=== PATIENT | female | born 1950 | race Caucasian/White ===

== ENCOUNTER 2019-03-03 13:47 | Inpatient (IN) | payer MEDICARE ==
[~2019-03-03] VITALS: Ht 154.9 cm; Wt 71.4 kg
[2019-03-03] MEDS ORDERED: SODIUM CHLORIDE FLUSH 10ML SYR IVF ONE (14:30)
--- NOTE | 2019-03-03 14:39 | NUR ---
Pt to room from lobby.
[2019-03-03 14:46] LABS: BASOPHILS # (AUTO) 0.06 x10^3/uL (0-0.1); BASOPHILS % (AUTO) 1 % (0-1); EOSINOPHILS # (AUTO) 0.11 x10^3/uL (0-0.4); EOSINOPHILS % (AUTO) 1 % (1-7); LYMPHOCYTES # (AUTO) 1.47 x10^3/uL (1-3.4); LYMPHOCYTES % (AUTO) 14 % (22-44); MD NO; MEAN CORPUSCULAR HGB CONC 32.5 g/dL (32.4-35.8); MEAN CORPUSCULAR VOLUME 89.2 fL (80-100); MONOCYTES # (AUTO) 0.79 x10^3/uL (0.2-0.8); MONOCYTES % (AUTO) 7 % (2-9); NEUTROPHILS # (AUTO) 8.24 x10^3/uL (1.8-6.8); NEUTROPHILS % (AUTO) 77 % (42-75); PLATELET COUNT 339 x10^3/uL (130-400); RED BLOOD COUNT 4.84 x10^6/uL (3.82-5.3); RED CELL DISTRIBUTION WIDTH 15.6 % (9.6-15.2)
[2019-03-03 14:51] LABS: ALBUMIN 2.9 g/dL (3.4-5.0); ANION GAP 7 mmol/L (5-15); CALCIUM 10.1 mg/dL (8.5-10.1); CHLORIDE 102 mmol/L (98-107); CREATININE 0.81 mg/dL (0.55-1.02)
--- NOTE | 2019-03-03 14:54 | NUR ---
FIRST CONTACT WITH PT. PT STATES "I TOOK A REAL BAD FALL SUNDAY NIGHT AROUND 10PM, FELL BACKWARDS, I HIT SOMETHING WITH MY SPINE, PAIN AROUND WAIST AREA, MY WHOLE STOMACH HURTS AND MY RIBS, HIT MY HEAD UNSURE IF I KNOCKED MYSELF OUT." DENIES ANY NECK PAIN, CP, SOB, N/V/D, DIZZINESS, URINARY OR STOOL INCONTINENCE. PT'S AOX4. RESPS EVEN AND UNLABORED. BP/SPO2 MONITORS IN PLACE. CALL LIGHT WITHIN REACH.
[2019-03-03] MEDS ORDERED: TIZANIDINE 4MG TABLET PO ONE (15:30)
[2019-03-03] MEDS ORDERED: OXYcodone/APAP 5/325MG TABLET PO ONE (15:30)
[2019-03-03] MEDS ORDERED: OXYcodone/APAP 5/325MG TABLET ONE (15:35)
--- NOTE | 2019-03-03 15:40 | NUR ---
pt medicated per emar. pt tolerated well.
--- NOTE | 2019-03-03 15:44 | NUR ---
PTIS NOT ABLE TO PROVIDE URINE SAMPLE AT THIS TIME.
--- NOTE | 2019-03-03 16:12 | NUR ---
PT IS IN CT NOW.
--- NOTE | 2019-03-03 16:31 | NUR ---
PT BACK TO ROOM FROM CT NOW.
[2019-03-03] MEDS ORDERED: OMNIPAQUE 350 MG/ML, 100ML BOTTLE ONE (16:34)
--- NOTE | 2019-03-03 16:47 | NUR ---
PT WHEELED TO AND BACK TO ROOM. PT PROVIDED URINE SAMPLE AT THIS TIME.
[2019-03-03 17:09] LABS: CULTURE INDICATED? NO; MICROSCOPIC NOT IND
--- NOTE | 2019-03-03 17:10 | NUR ---
ns infusing at this time. pt tolerated well.
[2019-03-03] MEDS ORDERED: TRAM50TA2 PO (17:11)
[2019-03-03] MEDS ORDERED: TIZA4TAB2 PO (17:13)
[2019-03-03] MEDS ORDERED: ETOD400T PO (17:14)
[2019-03-03] MEDS ORDERED: THYR15TA PO (17:15)
--- NOTE | 2019-03-03 17:51 | NUR ---
JAVAD WATER PROVIDED AT THIS TIME.
[2019-03-03] MEDS ORDERED: SODIUM CHLORIDE 0.9% 1,000 ML IV ONE (18:00)
--- NOTE | 2019-03-03 18:19 | NUR ---
REPORT GIVEN TO DC BLACKMON. ALL QUESTIONS ANSWERED.
[2019-03-03] MEDS ORDERED: hydrALAzine 20 MG/ML, 1ML IVPush PRN (19:00)
[2019-03-03] MEDS ORDERED: DOCUSATE 100 MG CAPSULE PO PRN (19:00)
[2019-03-03] MEDS ORDERED: ONDANSETRON ODT 4 MG PO PRN (19:00)
[2019-03-03] MEDS ORDERED: POLYETHYLENE GLYCOL 17 GM PACKET PO PRN (19:00)
[2019-03-03] MEDS ORDERED: ONDANSETRON 2MG/ML, 2ML IVPush PRN (19:00)
[2019-03-03] MEDS ORDERED: ACETAMINOPHEN 325 MG TABLET PO PRN (19:00)
[2019-03-03] MEDS ORDERED: BISACODYL 10 MG SUPP PR PRN (19:00)
[2019-03-03] MEDS ORDERED: PROMETHAZINE 25 MG/ML, 1ML IM PRN (19:00)
[2019-03-03 19:33] VITALS: BP 123/74
[2019-03-03 19:36] LABS: FREE T4 (FREE THYROXINE) 1.22 ng/dL (0.76-1.46)
[2019-03-03 19:50] LABS: HEMOGLOBIN A1C 5.6 % (4.2-6.3)
[2019-03-03] MEDS: SENNA/DOCUSATE TABLET PO SCH (20:20)
[2019-03-03] MEDS: morphine SULFATE 10 MG/ML, 1ML IVPush PRN ×2 (20:21→23:40)
[2019-03-03] MEDS: SODIUM CHLORIDE 0.9% 1,000 ML IV SCH (20:21)
[2019-03-03 23:05] VITALS: BP 131/73
[2019-03-04] MEDS: SODIUM CHLORIDE 0.9% 1,000 ML IV SCH ×2 (02:24→10:31)
[2019-03-04 02:28] VITALS: BP 136/78
[2019-03-04] MEDS: morphine SULFATE 10 MG/ML, 1ML IVPush PRN ×4 (02:42→18:12)
[2019-03-04 04:41] LABS: BASOPHILS # (AUTO) 0.02 x10^3/uL (0-0.1); BASOPHILS % (AUTO) 0 % (0-1); EOSINOPHILS # (AUTO) 0.09 x10^3/uL (0-0.4); EOSINOPHILS % (AUTO) 1 % (1-7); LYMPHOCYTES # (AUTO) 1.23 x10^3/uL (1-3.4); LYMPHOCYTES % (AUTO) 14 % (22-44); MD NO; MEAN CORPUSCULAR HEMOGLOBIN 28.3 pg (27.0-34.8); MEAN CORPUSCULAR HGB CONC 31.8 g/dL (32.4-35.8); MEAN PLATELET VOLUME 7.7 fL (7.4-10.4); MONOCYTES # (AUTO) 0.87 x10^3/uL (0.2-0.8); MONOCYTES % (AUTO) 10 % (2-9); NEUTROPHILS # (AUTO) 6.88 x10^3/uL (1.8-6.8); NEUTROPHILS % (AUTO) 76 % (42-75); PLATELET COUNT 294 x10^3/uL (130-400); RED BLOOD COUNT 4.51 x10^6/uL (3.82-5.3); RED CELL DISTRIBUTION WIDTH 15.4 % (9.6-15.2)
[2019-03-04 04:54] LABS: ALBUMIN 2.5 g/dL (3.4-5.0); ANION GAP 5 mmol/L (5-15); CALCIUM 9.1 mg/dL (8.5-10.1); CHLORIDE 106 mmol/L (98-107)
[2019-03-04 04:59] LABS: ALANINE AMINOTRANSFERASE 23 U/L (12-78); ALKALINE PHOSPHATASE 103 U/L (45-117); BILIRUBIN,TOTAL 0.5 mg/dL (0.2-1.0); CHOL/HDL RATIO 2.8; CHOLESTEROL, TOTAL 131 mg/dL (140-239); CREATININE 0.79 mg/dL (0.55-1.02); HDL CHOL % 36 % (28-40); HDL CHOLESTEROL (DIRECT) 47 mg/dL (40-60); LDL CHOLESTEROL,CALCULATED 70 mg/dL (54-169); LDL/HDL RATIO 1.5 (0.5-3.0); TOTAL PROTEIN 7.3 g/dL (6.4-8.2); TRIGLYCERIDES 68 mg/dL (50-200); VLDL CHOLESTEROL 14 mg/dL (0-25)
[2019-03-04] MEDS: THYROID PORK 15 MG PO SCH (06:00)
[2019-03-04] MEDS: OXYcodone IR 5MG TABLET PO PRN ×2 (06:22→23:23)
[2019-03-04 07:41] VITALS: BP 120/86
[2019-03-04] MEDS: SENNA/DOCUSATE TABLET PO SCH ×2 (09:17→20:30)
[2019-03-04] MEDS ORDERED: FENTANYL PF 100 MCG/2ML ONE ×2 (10:07→11:29)
[2019-03-04] MEDS ORDERED: FLUMAZENIL 0.1 MG/1 ML, 5ML ONE ×2 (10:07→11:29)
[2019-03-04] MEDS ORDERED: MIDAZOLAM 1 MG/ML, 5ML ONE ×2 (10:07→11:29)
[2019-03-04] MEDS ORDERED: NALOXONE 1 MG/ML, 2ML ONE ×2 (10:08→11:29)
[2019-03-04] MEDS ORDERED: GADOTERATE 7.5 MMOL/15 ML SYR ONE (13:00)
[2019-03-04 13:30] VITALS: BP 135/73
[2019-03-04 18:47] VITALS: BP 128/68
[2019-03-04] MEDS: HEPARIN 5,000 UNITS/ML, 1ML SQ SCH (20:30)
[2019-03-05 00:16] VITALS: BP 133/73
[2019-03-05] MEDS: OXYcodone IR 5MG TABLET PO PRN ×4 (03:55→22:07)
[2019-03-05] MEDS: HEPARIN 5,000 UNITS/ML, 1ML SQ SCH ×3 (03:55→22:07)
[2019-03-05] MEDS: THYROID PORK 15 MG PO SCH (05:25)
[2019-03-05 06:51] VITALS: BP 126/66
[2019-03-05] MEDS: SENNA/DOCUSATE TABLET PO SCH ×2 (09:27→22:07)
[2019-03-05 12:57] VITALS: BP 135/77
[2019-03-05] MEDS: morphine SULFATE 10 MG/ML, 1ML IVPush PRN (15:29)
[2019-03-05 18:35] VITALS: BP 144/81
[2019-03-06] MEDS: morphine SULFATE 10 MG/ML, 1ML IVPush PRN ×3 (01:12→09:25)
[2019-03-06] MEDS: HEPARIN 5,000 UNITS/ML, 1ML SQ SCH ×3 (04:19→19:58)
[2019-03-06 04:21] VITALS: BP 119/71
[2019-03-06] MEDS: THYROID PORK 15 MG PO SCH (05:15)
[2019-03-06 07:45] VITALS: BP 116/74
[2019-03-06] MEDS: SENNA/DOCUSATE TABLET PO SCH ×2 (08:18→21:08)
[2019-03-06] MEDS: OXYcodone IR 5MG TABLET PO PRN ×3 (13:20→22:37)
[2019-03-06] MEDS ORDERED: GADOTERATE 7.5 MMOL/15 ML SYR ONE (14:20)
[2019-03-06 15:30] VITALS: BP 122/82
[2019-03-06 21:03] VITALS: BP 132/78
[2019-03-07] MEDS: HEPARIN 5,000 UNITS/ML, 1ML SQ SCH ×3 (03:11→19:59)
[2019-03-07] MEDS: OXYcodone IR 5MG TABLET PO PRN ×5 (03:53→23:16)
[2019-03-07 04:17] VITALS: BP 116/76
[2019-03-07] MEDS: THYROID PORK 15 MG PO SCH (04:57)
[2019-03-07] MEDS: SENNA/DOCUSATE TABLET PO SCH ×2 (07:55→19:14)
[2019-03-07 08:25] VITALS: BP 132/75
[2019-03-07 08:40] VITALS: BP 122/82
[2019-03-07] MEDS ORDERED: FENTANYL PF 250 MCG/5ML ONE (11:16)
[2019-03-07] MEDS ORDERED: DEXAMETHASONE 4 MG/ML, 1ML ONE (11:53)
[2019-03-07] MEDS ORDERED: GLYCOPYRROLATE 0.2MG/1ML, 5ML ONE (11:53)
[2019-03-07] MEDS ORDERED: PROPOFOL 10 MG/ML, 20ML ONE (11:53)
[2019-03-07] MEDS ORDERED: CEFAZOLIN 1,000 MG ONE (11:53)
[2019-03-07] MEDS ORDERED: ROCURONIUM 10MG/ML,5ML ONE (11:53)
[2019-03-07] MEDS ORDERED: ONDANSETRON 2MG/ML, 2ML ONE ×2 (11:53→14:04)
[2019-03-07] MEDS ORDERED: NEOSTIGMINE 1 MG/ML, 10ML ONE (11:53)
[2019-03-07] MEDS ORDERED: LIDOCAINE 1%, 20ML ONE (12:17)
[2019-03-07] MEDS ORDERED: ACETAMINOPHEN 325 MG TABLET PO PRN (12:30)
[2019-03-07] MEDS ORDERED: HYDROmorphone 2 MG/ML, 1ML IVPush PRN (12:30)
[2019-03-07] MEDS ORDERED: OXYcodone 5 MG/5 ML ORAL.SOL UDC PO PRN (12:30)
[2019-03-07] MEDS ORDERED: ONDANSETRON 2MG/ML, 2ML IV PRN (12:30)
[2019-03-07] MEDS ORDERED: LABETALOL 5MG/ML, 20ML IV PRN (12:30)
[2019-03-07] MEDS ORDERED: hydrALAzine 20 MG/ML, 1ML IV PRN (12:30)
[2019-03-07] MEDS ORDERED: PROMETHAZINE 25 MG/ML, 1ML IV PRN (12:30)
[2019-03-07] MEDS ORDERED: OXYcodone 5 MG/5 ML ORAL.SOL UDC ONE (13:43)
[2019-03-07] MEDS ORDERED: FENTANYL PF 100 MCG/2ML ONE ×2 (13:43→13:57)
[2019-03-07] MEDS: FENTANYL PF 100 MCG/2ML IV PRN ×4 (13:50→14:09)
[2019-03-07 14:54] VITALS: BP 125/72
[2019-03-07] MEDS ORDERED: MAGNESIUM CITRATE 300ML ORAL SOL PO ONE (15:30)
[2019-03-07 19:06] VITALS: BP 117/68
[2019-03-08] MEDS: HEPARIN 5,000 UNITS/ML, 1ML SQ SCH ×3 (01:36→20:34)
[2019-03-08] MEDS: OXYcodone IR 5MG TABLET PO PRN ×4 (03:45→20:38)
[2019-03-08 03:51] VITALS: BP 108/68
[2019-03-08] MEDS: THYROID PORK 15 MG PO SCH (05:13)
[2019-03-08 07:08] VITALS: BP 117/66
[2019-03-08] MEDS: SENNA/DOCUSATE TABLET PO SCH ×2 (08:41→20:34)
[2019-03-08 16:03] VITALS: BP 100/63
[2019-03-08 19:01] VITALS: BP 118/71
[2019-03-09 02:06] VITALS: BP 118/69
[2019-03-09] MEDS: OXYcodone IR 5MG TABLET PO PRN ×2 (02:11→21:41)
[2019-03-09 05:15] LABS: BASOPHILS # (AUTO) 0.04 x10^3/uL (0-0.1); BASOPHILS % (AUTO) 1 % (0-1); EOSINOPHILS # (AUTO) 0.19 x10^3/uL (0-0.4); EOSINOPHILS % (AUTO) 3 % (1-7); LYMPHOCYTES % (AUTO) 19 % (22-44); MD NO; MEAN CORPUSCULAR HGB CONC 32.1 g/dL (32.4-35.8); MEAN CORPUSCULAR VOLUME 90.3 fL (80-100); MEAN PLATELET VOLUME 8.1 fL (7.4-10.4); MONOCYTES # (AUTO) 0.63 x10^3/uL (0.2-0.8); MONOCYTES % (AUTO) 9 % (2-9); NEUTROPHILS # (AUTO) 4.73 x10^3/uL (1.8-6.8); NEUTROPHILS % (AUTO) 69 % (42-75); PLATELET COUNT 265 x10^3/uL (130-400); RED CELL DISTRIBUTION WIDTH 15.6 % (9.6-15.2)
[2019-03-09 05:23] LABS: ANION GAP 6 mmol/L (5-15); CALCIUM 9.3 mg/dL (8.5-10.1); CHLORIDE 106 mmol/L (98-107)
[2019-03-09] MEDS: THYROID PORK 15 MG PO SCH (06:00)
[2019-03-09] MEDS: HEPARIN 5,000 UNITS/ML, 1ML SQ SCH ×3 (06:15→21:42)
[2019-03-09 06:40] VITALS: BP 124/79
[2019-03-09] MEDS: SENNA/DOCUSATE TABLET PO SCH ×2 (11:39→21:42)
[2019-03-09 12:15] VITALS: BP 111/67
[2019-03-09] MEDS: DIAZEPAM 5 MG TABLET PO PRN (13:45)
[2019-03-09 19:15] VITALS: BP 133/62
[2019-03-09] MEDS: morphine SULFATE 10 MG/ML, 1ML IVPush PRN (20:11)
[2019-03-09] MEDS: CYCLOBENZAPRINE 10 MG TABLET PO PRN (21:50)
[2019-03-10 02:12] VITALS: BP 115/77
[2019-03-10] MEDS: OXYcodone IR 5MG TABLET PO PRN ×4 (04:28→19:54)
[2019-03-10] MEDS: THYROID PORK 15 MG PO SCH (04:37)
[2019-03-10 07:56] VITALS: BP 106/64
[2019-03-10] MEDS: SENNA/DOCUSATE TABLET PO SCH ×2 (09:07→19:55)
[2019-03-10] MEDS: HEPARIN 5,000 UNITS/ML, 1ML SQ SCH ×2 (09:07→17:47)
[2019-03-10 12:34] VITALS: BP 113/76
[2019-03-10] MEDS: CYCLOBENZAPRINE 10 MG TABLET PO PRN (14:41)
[2019-03-10 18:35] VITALS: BP 122/71
[2019-03-11] MEDS: OXYcodone IR 5MG TABLET PO PRN ×5 (01:04→23:18)
[2019-03-11] MEDS: HEPARIN 5,000 UNITS/ML, 1ML SQ SCH ×3 (01:05→17:08)
[2019-03-11 02:16] VITALS: BP 121/81
[2019-03-11 07:07] VITALS: BP 116/78
[2019-03-11] MEDS: THYROID PORK 15 MG PO SCH (08:00)
[2019-03-11] MEDS: DIAZEPAM 5 MG TABLET PO PRN ×2 (08:48→17:07)
[2019-03-11] MEDS: SENNA/DOCUSATE TABLET PO SCH ×2 (08:49→21:17)
[2019-03-11 12:38] VITALS: BP 109/67
[2019-03-11 18:31] VITALS: BP 113/65
[2019-03-12] MEDS: HEPARIN 5,000 UNITS/ML, 1ML SQ SCH ×4 (01:00→23:48)
[2019-03-12 01:02] VITALS: BP 107/65
[2019-03-12] MEDS: OXYcodone IR 5MG TABLET PO PRN (05:23)
[2019-03-12] MEDS: THYROID PORK 15 MG PO SCH (05:23)
[2019-03-12 06:46] VITALS: BP 115/67
[2019-03-12] MEDS: SENNA/DOCUSATE TABLET PO SCH ×2 (08:04→19:56)
[2019-03-12] MEDS: DIAZEPAM 5 MG TABLET PO PRN (08:04)
[2019-03-12 12:23] VITALS: BP 115/73
[2019-03-12 18:59] VITALS: BP 116/72
[2019-03-13 00:24] VITALS: BP 135/77
[2019-03-13] MEDS: THYROID PORK 15 MG PO SCH (05:53)
[2019-03-13 06:45] VITALS: BP 114/72
[2019-03-13] MEDS: SENNA/DOCUSATE TABLET PO SCH ×2 (09:25→19:44)
[2019-03-13] MEDS: DIAZEPAM 5 MG TABLET PO PRN (09:25)
[2019-03-13] MEDS: HEPARIN 5,000 UNITS/ML, 1ML SQ SCH ×2 (09:26→18:44)
[2019-03-13] MEDS ORDERED: SENN-193 PO (10:37)
[2019-03-13] MEDS ORDERED: DIAZ5TAB4 PO (10:37)
[2019-03-13] MEDS ORDERED: ACID1TAB7 PO (10:37)
[2019-03-13] MEDS ORDERED: TRAM50TA2 PO (10:37)
[2019-03-13 12:24] VITALS: BP 114/76
[2019-03-13] MEDS: LACTOBACILLUS CHEW TABLET PO SCH (18:43)
[2019-03-13 18:59] VITALS: BP 129/76
[2019-03-13] MEDS: TIZANIDINE 4MG TABLET PO PRN (19:48)
[2019-03-14 00:10] VITALS: BP 99/66
[2019-03-14] MEDS: HEPARIN 5,000 UNITS/ML, 1ML SQ SCH ×3 (04:03→21:40)
[2019-03-14] MEDS: LACTOBACILLUS CHEW TABLET PO SCH ×4 (04:03→21:40)
[2019-03-14] MEDS: TIZANIDINE 4MG TABLET PO PRN ×3 (04:04→21:40)
[2019-03-14] MEDS: THYROID 30 MG TABLET PO SCH (06:07)
[2019-03-14 06:51] VITALS: BP 103/67
[2019-03-14] MEDS: SENNA/DOCUSATE TABLET PO SCH ×2 (08:37→21:40)
[2019-03-14] MEDS: DIAZEPAM 5 MG TABLET PO PRN ×2 (08:37→18:01)
[2019-03-14] MEDS ORDERED: SENN-177 PO (12:02)
[2019-03-14 13:15] VITALS: BP 124/69
[2019-03-14 19:37] VITALS: BP 115/74
[2019-03-15 04:06] VITALS: BP 112/73
[2019-03-15] MEDS: THYROID 30 MG TABLET PO SCH (04:09)
[2019-03-15] MEDS: HEPARIN 5,000 UNITS/ML, 1ML SQ SCH ×3 (04:10→21:06)
[2019-03-15] MEDS: LACTOBACILLUS CHEW TABLET PO SCH ×3 (07:29→21:06)
[2019-03-15] MEDS: SENNA/DOCUSATE TABLET PO SCH ×2 (07:29→21:06)
[2019-03-15] MEDS: TIZANIDINE 4MG TABLET PO PRN ×2 (07:29→15:56)
[2019-03-15 08:32] VITALS: BP 111/71
[2019-03-15 13:43] VITALS: BP 106/69
[2019-03-15 21:11] VITALS: BP 114/71
[2019-03-16] MEDS: TIZANIDINE 4MG TABLET PO PRN (01:12)
[2019-03-16 01:28] VITALS: BP 112/72
[2019-03-16] MEDS: HEPARIN 5,000 UNITS/ML, 1ML SQ SCH ×3 (04:01→20:10)
[2019-03-16] MEDS: THYROID 30 MG TABLET PO SCH (05:28)
[2019-03-16 07:15] VITALS: BP 92/56
[2019-03-16] MEDS: LACTOBACILLUS CHEW TABLET PO SCH ×3 (08:44→20:10)
[2019-03-16] MEDS: SENNA/DOCUSATE TABLET PO SCH ×2 (08:44→20:10)
[2019-03-16 13:09] VITALS: BP 107/66
[2019-03-16] MEDS: DIAZEPAM 5 MG TABLET PO PRN (14:24)
[2019-03-16 18:38] VITALS: BP 124/71
[2019-03-17 01:18] VITALS: BP 122/69
[2019-03-17] MEDS: HEPARIN 5,000 UNITS/ML, 1ML SQ SCH ×3 (05:24→21:55)
[2019-03-17] MEDS: THYROID 30 MG TABLET PO SCH (05:24)
[2019-03-17 06:51] VITALS: BP 106/61
[2019-03-17] MEDS: SENNA/DOCUSATE TABLET PO SCH ×2 (10:26→21:55)
[2019-03-17] MEDS: LACTOBACILLUS CHEW TABLET PO SCH ×3 (10:26→21:55)
[2019-03-17] MEDS: TIZANIDINE 4MG TABLET PO PRN (12:47)
[2019-03-17 13:25] VITALS: BP 105/54
[2019-03-17 18:27] VITALS: BP 104/69
[2019-03-17 23:38] VITALS: BP 108/76
[2019-03-18] MEDS: TIZANIDINE 4MG TABLET PO PRN ×2 (00:13→11:05)
[2019-03-18] MEDS: HEPARIN 5,000 UNITS/ML, 1ML SQ SCH (05:42)
[2019-03-18] MEDS: THYROID 30 MG TABLET PO SCH (05:42)
[2019-03-18 06:52] VITALS: BP 117/73
[2019-03-18] MEDS: SENNA/DOCUSATE TABLET PO SCH (09:16)
[2019-03-18] MEDS: LACTOBACILLUS CHEW TABLET PO SCH (09:16)
[2019-03-18 11:00] VITALS: BP 116/64
== END 2019-03-18 11:35 | disposition home health service (06) | DRG 166 ==
LOC: ED 16:56 → EDIP 16:57 → ED 17:12 → 4NW 18:01 → DCLOUNGE 03-18 11:09
PROVIDERS: ADMIT Internal Medicine; ATTEND Internal Medicine
PROC: 0WBC3ZX Excision of Mediastinum, Percutaneous Approach, Diagnostic (ICD-10-PCS; principal; 2019-03-04)
PROC: 0PB43ZX Excision of Thoracic Vertebra, Percutaneous Approach, Diagnostic (ICD-10-PCS; 2019-03-07)
PROC: 0PS43ZZ Reposition Thoracic Vertebra, Percutaneous Approach (ICD-10-PCS; 2019-03-07)
PROC: 0PU43JZ Supplement Thoracic Vertebra with Synthetic Substitute, Percutaneous Approach (ICD-10-PCS; 2019-03-07)
PROC: 0P543ZZ Destruction of Thoracic Vertebra, Percutaneous Approach (ICD-10-PCS; 2019-03-07)
DX: C34.91 Malignant neoplasm of unspecified part of right bronchus or lung (principal); E43 Unspecified severe protein-calorie malnutrition; M80.08XA Age-related osteoporosis with current pathological fracture, vertebra(e), initial encounter for fracture; N13.30 Unspecified hydronephrosis; N26.1 Atrophy of kidney (terminal); E03.9 Hypothyroidism, unspecified; G89.29 Other chronic pain; J44.9 Chronic obstructive pulmonary disease, unspecified; K59.00 Constipation, unspecified; M19.90 Unspecified osteoarthritis, unspecified site; M41.9 Scoliosis, unspecified; M47.812 Spondylosis without myelopathy or radiculopathy, cervical region; M47.816 Spondylosis without myelopathy or radiculopathy, lumbar region; M48.04 Spinal stenosis, thoracic region; S20.211A Contusion of right front wall of thorax, initial encounter; W01.0XXA Fall on same level from slipping, tripping and stumbling without subsequent striking against object, initial encounter; Y93.89 Activity, other specified; Y92.090 Kitchen in other non-institutional residence as the place of occurrence of the external cause; Z88.2 Allergy status to sulfonamides; Y99.8 Other external cause status; Z88.8 Allergy status to other drugs, medicaments and biological substances; Z68.29 Body mass index [BMI] 29.0-29.9, adult; Z88.0 Allergy status to penicillin; Z87.891 Personal history of nicotine dependence
CPT/HCPCS: 20225; 20982; 22513; 32400; 36415; 70450; 70553; 71260; 72125; 72156; 72157; 74022; 74177; 77012; 80048; 80053; 80061; 81003; 82040; 83036; 83735; 84439; 84443; 85025; 88184; 88185; 88305; 88307; 88311; 88342; 99156; 99157; 99285; G0378; J0690; J1100; J1644; J2250; J2405; J2704; J2710; J3010; Q9967; A9575; C1713; C1886; J2270; J2310; J7030

== ENCOUNTER → 2019-04-02 | Outpatient (CLI) | payer MEDICARE ==
[~2019-04-02] MED LIST: ACID1TAB7 PO; DIAZ5TAB4 PO; ETOD400T PO; SENN-177 PO; SENN-193 PO; THYR15TA PO; TIZA4TAB2 PO; TRAM50TA2 PO
== END | disposition home or self-care (01) ==
LOC: PETCFH 13:18
PROVIDERS: ATTEND Radiology Radiation Oncology
DX: R91.8 Other nonspecific abnormal finding of lung field (principal); C38.1 Malignant neoplasm of anterior mediastinum; Z85.828 Personal history of other malignant neoplasm of skin; Z87.891 Personal history of nicotine dependence
CPT/HCPCS: 78815; A9552

== ENCOUNTER → 2019-04-11 | Outpatient (CLI) | payer MEDICARE ==
[~2019-04-11] MED LIST changes: +REGADENOSON 0.4 MG/5 ML SYRINGE ONE
== END | disposition home or self-care (01) ==
LOC: CFH 11:28
PROVIDERS: ATTEND Surgery
DX: C34.10 Malignant neoplasm of upper lobe, unspecified bronchus or lung (principal); J43.9 Emphysema, unspecified; N13.30 Unspecified hydronephrosis; M81.0 Age-related osteoporosis without current pathological fracture; E03.9 Hypothyroidism, unspecified; Z90.89 Acquired absence of other organs; Z88.2 Allergy status to sulfonamides; Z88.0 Allergy status to penicillin; Z88.8 Allergy status to other drugs, medicaments and biological substances; Z85.828 Personal history of other malignant neoplasm of skin; Z87.891 Personal history of nicotine dependence
CPT/HCPCS: 78452; 93017; A9502; J2785

== ENCOUNTER 2019-04-22 12:48 | Outpatient (CLI) | payer MEDICARE ==
[~2019-04-22 12:48] MED LIST changes: -REGADENOSON 0.4 MG/5 ML SYRINGE ONE
== END 2019-04-22 23:59 | disposition home or self-care (01) ==
LOC: CARD 12:48
PROVIDERS: ATTEND Surgery
DX: C34.11 Malignant neoplasm of upper lobe, right bronchus or lung (principal); J43.9 Emphysema, unspecified; N13.30 Unspecified hydronephrosis; M81.0 Age-related osteoporosis without current pathological fracture
CPT/HCPCS: 94060; 94726; 94729

== ENCOUNTER 2019-05-09 13:16 | Outpatient (CLI) | payer MEDICARE ==
[2019-05-09] MEDS ORDERED: TIZA4CAP PO (14:04)
[2019-05-09] MEDS ORDERED: CHRO1000 PO (14:04)
[2019-05-09] MEDS ORDERED: [UNRECOGNIZED DRUG - OTHER] PO (14:04)
[2019-05-09] MEDS ORDERED: HYAL1CAP PO (14:04)
[2019-05-09] MEDS ORDERED: VITA400C43 PO (14:04)
[2019-05-09] MEDS ORDERED: THYR30TA PO ×2 (14:04→14:31)
[2019-05-09] MEDS ORDERED: IBAN150T15 PO (14:04)
[2019-05-09] MEDS ORDERED: ETOD400T PO (14:04)
[2019-05-09] MEDS ORDERED: OMEG1CAP39 PO (14:04)
[2019-05-09] MEDS ORDERED: CINN1CAP PO (14:04)
[2019-05-09] MEDS ORDERED: ASCO10004 PO (14:04)
[2019-05-09] MEDS ORDERED: POTA99TA2 PO (14:04)
[2019-05-09] MEDS ORDERED: TRAM50TA2 PO (14:04)
[2019-05-09] MEDS ORDERED: DIAZ5TAB4 PO (14:04)
[2019-05-09] MEDS ORDERED: TURM1CAP PO (14:04)
[2019-05-09] MEDS ORDERED: DOCU-131 PO (14:04)
[2019-05-09] MEDS ORDERED: VITA80004 PO (14:04)
[2019-05-09] MEDS ORDERED: VITA1TAB19 PO (14:04)
[2019-05-09] MEDS ORDERED: UBID1CAP43 PO (14:05)
[2019-05-09] MEDS ORDERED: GLUC1CAP48 PO (14:05)
[2019-05-09] MEDS ORDERED: CALC1CAP8 PO (14:05)
[2019-05-09] MEDS ORDERED: BACI1CAP PO (14:05)
[2019-05-09] MEDS ORDERED: MULT-706 PO (14:05)
[2019-05-09] MEDS ORDERED: LUTE20TA PO (14:05)
[2019-05-09] MEDS ORDERED: THYR60TA PO (14:31)
== END 2019-05-09 23:59 | disposition home or self-care (01) ==
LOC: STAR 13:16
PROVIDERS: ATTEND Surgery
DX: Z01.818 Encounter for other preprocedural examination (principal); R59.0 Localized enlarged lymph nodes
CPT/HCPCS: 93005

== ENCOUNTER 2019-05-15 07:36 | Outpatient (CLI) | payer MEDICARE ==
[~2019-05-15 07:36] MED LIST changes: +ASCO10004 PO; +BACI1CAP PO; +CALC1CAP8 PO; +CHRO1000 PO; +CINN1CAP PO; +DOCU-131 PO; +GLUC1CAP48 PO; +HYAL1CAP PO; +IBAN150T15 PO; +LUTE20TA PO; +MULT-706 PO; +OMEG1CAP39 PO; +POTA99TA2 PO; +THYR30TA PO; +THYR60TA PO; +TIZA4CAP PO; +TURM1CAP PO; +UBID1CAP43 PO; +VITA1TAB19 PO; +VITA400C43 PO; +VITA80004 PO; +[UNRECOGNIZED DRUG - OTHER] PO
== END 2019-05-15 23:59 | disposition home or self-care (01) ==
LOC: ROC 07:36
PROVIDERS: ATTEND Radiology Radiation Oncology
DX: C34.11 Malignant neoplasm of upper lobe, right bronchus or lung (principal)
CPT/HCPCS: G0463

== ENCOUNTER → 2019-12-22 | Outpatient (CLI) | payer MEDICARE ==
[~2019-12-22] MED LIST changes: +ASCO500T56 PO; +CHOL400T2 PO; +OMNIPAQUE 350 MG/ML, 100ML BOTTLE ONE; +ZINC220C7 PO
== END | disposition home or self-care (01) ==
LOC: CFH 11:20
PROVIDERS: ATTEND Internal Medicine Hematology & Oncology
DX: C34.11 Malignant neoplasm of upper lobe, right bronchus or lung (principal); K57.30 Diverticulosis of large intestine without perforation or abscess without bleeding; R91.1 Solitary pulmonary nodule; J43.9 Emphysema, unspecified; Z98.890 Other specified postprocedural states
CPT/HCPCS: 71260; 74177; Q9967

== ENCOUNTER → 2020-03-10 | Outpatient (CLI) | payer MEDICARE ==
[~2020-03-10] MED LIST changes: +ASCO100018 PO; -ASCO10004 PO; +GADOTERATE 7.5 MMOL/15 ML SYR ONE; -OMNIPAQUE 350 MG/ML, 100ML BOTTLE ONE
== END | disposition home or self-care (01) ==
LOC: CFH 12:48
PROVIDERS: ATTEND Physician Assistant Surgical
DX: M50.322 Other cervical disc degeneration at C5-C6 level (principal); M51.27 Other intervertebral disc displacement, lumbosacral region; M43.8X4 Other specified deforming dorsopathies, thoracic region; M25.78 Osteophyte, vertebrae
CPT/HCPCS: 72040; 72158; A9575

== ENCOUNTER 2020-04-21 14:50 | Emergency (ER) | payer MEDICARE ==
[~2020-04-21] VITALS: Ht 154.9 cm; Wt 80.0 kg
[~2020-04-21 14:50] MED LIST changes: -GADOTERATE 7.5 MMOL/15 ML SYR ONE
[2020-04-21 15:48] LABS: BASOPHILS % (AUTO) 1 % (0-1); EOSINOPHILS % (AUTO) 1 % (1-7); LYMPHOCYTES % (AUTO) 27 % (22-44); MEAN CORPUSCULAR HEMOGLOBIN 31.7 pg (27.0-34.8); MEAN CORPUSCULAR HGB CONC 34.5 g/dL (32.4-35.8); MEAN PLATELET VOLUME 7.1 fL (7.4-10.4); MONOCYTES % (AUTO) 8 % (2-9); NEUTROPHILS % (AUTO) 64 % (42-75); PLATELET COUNT 207 x10^3/uL (130-400); RED BLOOD COUNT 3.77 x10^6/uL (3.82-5.3); RED CELL DISTRIBUTION WIDTH 13.5 % (9.6-15.2)
[2020-04-21 15:50] LABS: MD NO
[2020-04-21 15:56] LABS: ALBUMIN 3.7 g/dL (3.4-5.0); ANION GAP 5 mmol/L (5-15); CALCIUM 9.5 mg/dL (8.5-10.1); CHLORIDE 105 mmol/L (98-107)
[2020-04-21 16:02] LABS: ALANINE AMINOTRANSFERASE 12 U/L (12-78); ALKALINE PHOSPHATASE 92 U/L (45-117); BILIRUBIN,TOTAL 0.6 mg/dL (0.2-1.0); CREATININE 0.84 mg/dL (0.55-1.02); TOTAL PROTEIN 7.8 g/dL (6.4-8.2); TROPONIN I < 0.015 ng/mL (0.000-0.045)
--- NOTE | 2020-04-21 16:26 | NUR ---
CORPORATE CONCIERGE: PT TO ROOM FROM LOBBY USING WHEELED WALKER
--- NOTE | 2020-04-21 17:00 | NUR ---
TASK RN NOTE: PT REPORTS [facility] 03/10/20, WHICH PT HAD ALLERGIC RXN FROM, AFTER THIS LT EAR PAIN AND DIFFICULTY HEARING STARTING 03/26/20. PT USED [facility]. PT REPORTS RT UPPER ARM SWELLING AND ERYTHEMA, BOTH EVIDENT TO ED RN. 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 REMAINS ON NC, WHICH PT IS ALWAYS ON.
--- NOTE | 2020-04-21 17:14 | NUR ---
TASK RN NOTE: PT SETTLED INTO GURNEY. ERMD IN TO ASSESS PT AND DISCUSS PLAN OF CARE. CURRENTLY AWAITING US FOR ARM.
--- NOTE | 2020-04-21 17:26 | NUR ---
report given from LORRI Talley
--- NOTE | 2020-04-21 18:17 | NUR ---
PT RESTING IN ROOM. NO ACUTE DISTRESS NOTED. CALL LIGHT IN PLACE. WILL CONTINUE TO MONITOR.
--- NOTE | 2020-04-21 18:40 | NUR ---
TASK RN NOTE: MULTIPLE CALLS TO US REGARDING IMAGING AND PT'S PLACE IN LINE. NO ANSWER.
--- NOTE | 2020-04-21 19:18 | NUR ---
report given to LORRI Valverde
[2020-04-21] MEDS ORDERED: APIXABAN 5 MG TABLET PO ONE (20:30)
[2020-04-21] MEDS ORDERED: APIXABAN 5 MG TABLET ONE (20:30)
[2020-04-21 20:43] VITALS: BP 121/62
== END 2020-04-21 20:58 | disposition home or self-care (01) ==
LOC: ED 16:44
DX: H65.03 Acute serous otitis media, bilateral (principal); R06.00 Dyspnea, unspecified; E03.9 Hypothyroidism, unspecified; R94.31 Abnormal electrocardiogram [ECG] [EKG]; R07.9 Chest pain, unspecified; Z85.118 Personal history of other malignant neoplasm of bronchus and lung
CPT/HCPCS: 36415; 71045; 80053; 83880; 84484; 85025; 93005; 99285

== ENCOUNTER 2020-05-04 14:47 | Emergency (ER) | payer MEDICARE ==
[~2020-05-04] VITALS: Ht 154.9 cm; Wt 78.0 kg
[2020-05-04 15:42] LABS: ALANINE AMINOTRANSFERASE 16 U/L (12-78); ALBUMIN 3.6 g/dL (3.4-5.0); ANION GAP 6 mmol/L (5-15); CALCIUM 9.9 mg/dL (8.5-10.1); CHLORIDE 104 mmol/L (98-107)
[2020-05-04 15:44] LABS: BASOPHILS % (AUTO) 0 % (0-1); EOSINOPHILS % (AUTO) 1 % (1-7); LYMPHOCYTES % (AUTO) 13 % (22-44); MEAN CORPUSCULAR HEMOGLOBIN 31.6 pg (27.0-34.8); MEAN CORPUSCULAR HGB CONC 34.4 g/dL (32.4-35.8); MEAN PLATELET VOLUME 6.9 fL (7.4-10.4); MONOCYTES % (AUTO) 8 % (2-9); NEUTROPHILS % (AUTO) 79 % (42-75); PLATELET COUNT 208 x10^3/uL (130-400); RED BLOOD COUNT 3.63 x10^6/uL (3.82-5.3); RED CELL DISTRIBUTION WIDTH 13.6 % (9.6-15.2)
[2020-05-04 15:46] LABS: ALKALINE PHOSPHATASE 82 U/L (45-117); BILIRUBIN,TOTAL 0.6 mg/dL (0.2-1.0); CREATININE 0.95 mg/dL (0.55-1.02); MD NO; TOTAL PROTEIN 7.6 g/dL (6.4-8.2); TROPONIN I < 0.015 ng/mL (0.000-0.045)
--- NOTE | 2020-05-04 15:53 | NUR ---
BIB [facility] FOR C/O SOB, CP, INCREASING RIGHT ARM PAIN/SWELLING. KNOWN RIGHT ARM CLOTS DX PREVIOUS ADMINISSION. PT. ON ELOQUIS. MD AT BEDSIDE FOR ASSESSMENT. DIAGNOSTICS ORDERED. MONITORS CONNECTED. EKG COMPLETE. WARM BLANKET PROVIDED
--- NOTE | 2020-05-04 16:05 | NUR ---
Nish ny in ED - 05/04/20 at 1605 by ROXI TASK RN: US AT BEDSIDE.
--- NOTE | 2020-05-04 16:05 | NUR ---
TASK RN: US AT BEDSIDE.
--- NOTE | 2020-05-04 16:15 | NUR ---
ULTRASOUND AT BEDSIDE.
--- NOTE | 2020-05-04 16:21 | NUR ---
PT RESTING ON GURNEY DURING ULTRASOUND. VSS. NAD. STATES NO NEEDS AT THIS TIME
--- NOTE | 2020-05-04 17:30 | NUR ---
BREAK RN: PER , CTA TO BE CANCELLED. NEEDS AN EJ FOR ADMISSION, UNABLE TO USE ARMS FOR PIV.
[2020-05-04] MEDS ORDERED: ENOXAPARIN 80 MG/0.8 ML ONE (17:53)
[2020-05-04] MEDS: ENOXAPARIN 80 MG/0.8 ML SQ SCH ×2 (17:55→23:20)
--- NOTE | 2020-05-04 21:12 | NUR ---
PT RESTING ON GURNEY. WARM BLANKETS AND WATER PROVIDED. [facility] AT BEDSIDE. PT STATES NO ADDITIONAL NEEDS AT THIS TIME
--- NOTE | 2020-05-04 21:24 | NUR ---
PT RESTING ON GURNEY. STATES 8/10 LOW BACK PAIN. ADMINISTERING 50MG TRAMADOL PER ANDRES GOMEZ APRN. PT DENIES ADDITIONAL NEEDS AT THIS TIME. WILL CONTINUE TO MONITOR
[2020-05-04] MEDS ORDERED: DIAZEPAM 5 MG TABLET PO PRN (23:30)
[2020-05-04] MEDS ORDERED: DOCUSATE 100 MG CAPSULE PO PRN (23:30)
[2020-05-04] MEDS ORDERED: MELATONIN 5 MG TABLET PO PRN (23:30)
[2020-05-04] MEDS ORDERED: ACETAMINOPHEN 325 MG TABLET PO PRN (23:30)
--- NOTE | 2020-05-05 00:26 | NUR ---
PT RESTING IN HOSPITAL BED. RESPIRATIONS EVEN AND UNLABORED. VSS. NAD.
[2020-05-05 00:29] LABS: TROPONIN I < 0.015 ng/mL (0.000-0.045)
--- NOTE | 2020-05-05 01:16 | NUR ---
BEDSIDE REPORT FROM, AAKASH BLACKMON. PT CARE TRANSFERRED AT THIS TIME. PT NAD, RESTING ON GURNEY, APPEARS COMFORTABLE, CALL LIGHT ON LAP, BED IN LOWEST, WCTM. WAITING FOR ADMIT BED.
--- NOTE | 2020-05-05 02:50 | NUR ---
PT RESTING ON HOSPITAL BED, NAD, APPEARS COMFORTABLE, 2 PHONES PLUGGED IN AT FOOT OF BED PER REQUEST. EYES CLOSED, EVEN AND UNLABORED RESPIRATIONS. WCTM. WAITING FOR ADMIT BED. BED IN LOWEST, CALL LIGHT ON BED.
--- NOTE | 2020-05-05 04:30 | NUR ---
pt nad, ambulated to and from restroom with a smooth and steady gait, denies additional needs at this time. breakfast tray ordered, wctm. waiting for admit bed.
--- NOTE | 2020-05-05 05:09 | NUR ---
PT AWAKE AT THIS TIME. WATCHING TV, NAD, APPEARS COMFORTABLE, DENIES ADDITIONAL QUESTIONS AT THIS TIME. UPDATED ON POC. WCTM. WAITING FOR ADMIT BED.
--- NOTE | 2020-05-05 05:18 | NUR ---
morning meds ordered from pharmacy at this time.
[2020-05-05] MEDS ORDERED: DIAZEPAM 5 MG TABLET ONE (05:25)
[2020-05-05] MEDS ORDERED: ACETAMINOPHEN 325 MG TABLET ONE (05:25)
[2020-05-05] MEDS ORDERED: ENOXAPARIN 80 MG/0.8 ML ONE (05:26)
[2020-05-05] MEDS: ENOXAPARIN 80 MG/0.8 ML SQ SCH ×2 (05:29)
[2020-05-05 05:39] LABS: BASOPHILS % (AUTO) 1 % (0-1); EOSINOPHILS % (AUTO) 2 % (1-7); LYMPHOCYTES % (AUTO) 27 % (22-44); MEAN CORPUSCULAR HEMOGLOBIN 31.7 pg (27.0-34.8); MEAN CORPUSCULAR HGB CONC 34.7 g/dL (32.4-35.8); MONOCYTES % (AUTO) 11 % (2-9); NEUTROPHILS % (AUTO) 60 % (42-75); PLATELET COUNT 177 x10^3/uL (130-400); RED BLOOD COUNT 3.48 x10^6/uL (3.82-5.3); RED CELL DISTRIBUTION WIDTH 13.6 % (9.6-15.2)
[2020-05-05 05:41] LABS: MD NO
[2020-05-05 05:42] LABS: ANION GAP 5 mmol/L (5-15); CHLORIDE 107 mmol/L (98-107); CREATININE 0.68 mg/dL (0.55-1.02)
[2020-05-05] MEDS ORDERED: THYROID 30 MG TABLET PO SCH (06:00)
--- NOTE | 2020-05-05 06:57 | NUR ---
BEDSIDE REPORT TO CINDY BLACKMON, PT CARE TRANSFERRED AT THIS TIME.
--- NOTE | 2020-05-05 07:05 | NUR ---
REPORT FROM MICHAELLE. PT RESTING, VSS
--- NOTE | 2020-05-05 08:54 | NUR ---
MEAL TRAY PROVIDED. PT DENIES CP AT THIS TIME. VSS.
[2020-05-05] MEDS ORDERED: APIX5TAB PO (10:04)
--- NOTE | 2020-05-05 10:13 | NUR ---
DISCUSSED W HOSPITALIST TO BE DC
[2020-05-05 11:42] VITALS: BP 113/62
--- NOTE | 2020-05-05 11:42 | NUR ---
PT DRESSED, IV REMOVED. Patient given discharge instructions and they have confirmed that they understand the instructions.
== END 2020-05-05 12:46 | disposition home or self-care (01) ==
LOC: ED 18:44 → UNDOADMOB 19:52 → INTOOBSV 19:52 → EDIP 19:52 → ED 05-05 12:46
DX: I26.99 Other pulmonary embolism without acute cor pulmonale (principal); R07.89 Other chest pain; R06.02 Shortness of breath; J43.9 Emphysema, unspecified; R00.0 Tachycardia, unspecified; G89.29 Other chronic pain; E03.9 Hypothyroidism, unspecified; Z87.891 Personal history of nicotine dependence; Z90.89 Acquired absence of other organs
CPT/HCPCS: 36415; 71045; 80048; 80053; 83880; 84484; 85025; 93005; 93970; 96372; 99285; J1650